=== PATIENT | female | born 1935 | race Caucasian/White ===

== ENCOUNTER 2022-03-30 15:38 | Emergency (ER) | payer MEDICARE ==
[~2022-03-30 15:38] MED LIST: ACETAMINOPHEN325 MG PO; ARICEPT5 MG PO; ASPIRIN 325MG325 MG PO; ATORVASTATIN CA20 MG PO; AVAPRO300 MG PO; CENTRUM SILVER1 EAC1 PO; DILTIAZEM 24HR180 MG PO; DILTIAZEM ER180 M1 PO; ECOTRIN81 MG PO; HYDROCHLOROTH12.5 MG PO; IMDUR ER TAB 6060 MG PO; IRBESARTAN-HCT1 EAC1 PO; ISOSORBIDE MONO60 MG PO; LIPITOR TAB 2020 MG PO; LORTAB 5-325 M1 EACH PO; LORTAB 7.5-3251 EACH PO; METOPROLOL SUC100 MG PO; METOPROLOL SUCC25 MG PO; PREDNISOLONE ACE5 ML EYERT; TYLENOL 325MG325 MG PO; VALACYCLOVIR500 MG PO; VITAMIN D 40400 UNIT PO
[2022-03-30 16:43] LABS: HEMOGLOBIN 13.1 gm/dl (12.3-15.3); RED BLOOD COUNT 4.07 M/UL (4.00-5.10); WHITE BLOOD COUNT 5.5 K/UL (4.5-11.0)
[2022-03-30 17:10] LABS: BUN/CREATININE RATIO 43 (0-10)
[2022-03-30] MEDS ORDERED: BACTRIM DS TAB1 EACH PO (18:31)
== END 2022-03-30 20:50 | disposition home or self-care (01) ==
LOC: ER1 15:38
PROVIDERS: Emergency Medicine
DX: N39.0 Urinary tract infection, site not specified (principal); F32.A Depression, unspecified; W19.XXXA Unspecified fall, initial encounter
CPT/HCPCS: 70450; 71045; 73030; 80053; 81001; 84484; 85025; 86140; 93005; 99284